=== PATIENT | male | born 1945 | race Two or more races ===

== ENCOUNTER 2024-01-05 13:36 | Inpatient (IN) | payer MEDICAID ==
[~2024-01-05] VITALS: Ht 160 cm; Wt 53.0 kg
[2024-01-05 14:09] LABS: BASOPHILS % (AUTO) 0.3 % (0-1); EOSINOPHILS % (AUTO) 0 % (0-6); HEMATOCRIT 47.3 % (42.0-52.0); LYMPHOCYTES # (AUTO) 1.1 X10'3 (1.1-4.8); LYMPHOCYTES % (AUTO) 10.4 % (21-51); MEAN CORPUSCULAR HEMOGLOBIN 29.9 PG (27.0-31.0); MEAN CORPUSCULAR HGB CONC 33.9 g/dL (33.0-36.5); MEAN CORPUSCULAR VOLUME 88.4 FL (78-98); MEAN PLATELET VOLUME 8.2 FL (7.4-10.4); MONOCYTES # (AUTO) 0.7 X10'3 (0-0.9); MONOCYTES % (AUTO) 6.6 % (2-12); NEUTROPHILS # (AUTO) 8.9 X10'3 (1.8-7.7); NEUTROPHILS % (AUTO) 82.7 % (42-75); PLATELET COUNT 196 X10'3 (140-440); RED BLOOD COUNT 5.35 X10'6 (4.70-6.10); RED CELL DISTRIBUTION WIDTH 14.7 % (11.5-14.5); WHITE BLOOD COUNT 10.8 X10'3 (4.5-11.0)
[2024-01-05 14:24] LABS: ALANINE AMINOTRANSFERASE 9 U/L (12-78); ALBUMIN 3.5 G/DL (3.4-5.0); ALBUMIN/GLOBULIN RATIO 0.7 (1.1-1.5); ALKALINE PHOSPHATASE 87 IU/L (46-116); ANION GAP 10 (8-16); ASPARTATE AMINO TRANSFERASE 15 U/L (10-37); BILIRUBIN,TOTAL 1.4 MG/DL (0.1-1.0); BLOOD UREA NITROGEN 24 MG/DL (7-18); BUN/CREATININE RATIO 22.6 (10.0-20.0); CALCIUM 9.4 MG/DL (8.5-10.1); CHLORIDE 101 MMOL/L (99-107); CREATININE 1.06 MG/DL (0.60-1.10); GLUCOSE 154 MG/DL (70-104); LIPASE 23 U/L (16-77); POTASSIUM 3.8 MMOL/L (3.5-5.1); SODIUM 139 MMOL/L (135-145); TOTAL CARBON DIOXIDE 28.1 MMOL/L (24-32); TOTAL PROTEIN 8.3 G/DL (6.4-8.2); eCRCL 45 ML/MIN; eGFR 67 ML/MIN
[2024-01-05 16:06] LABS: BILIRUBIN,URINE SMALL (Neg); CLARITY,URINE CLOUDY (Clear); COLOR,URINE YELLOW (Yellow); GLUCOSE, URINE NEGATIVE (Neg); KETONES,URINE TRACE mg/dl (Neg); LEUKOCYTE ESTERASE ,URINE SMALL (Neg); NITRITES, URINE NEGATIVE (Neg); OCCULT BLOOD,URINE SMALL (Neg); PROTEIN,URINE 30 mg/dl (Neg); UROBILINOGEN,URINE 0.2 E.U/dL (0.2-1.0)
[2024-01-05 16:10] LABS: UA COLLECTION TYPE VOIDED
[2024-01-05 16:11] LABS: HYALINE CASTS 0-3 /LPF (NEGATIVE); SQUAMOUS EPITHELIAL CELL,UR FEW /LPF (FEW)
[2024-01-05 16:12] LABS: BACTERIA,URINE 3+ /HPF (Neg); WBC,URINE TNTC /HPF (0-4)
[2024-01-05 16:13] LABS: CAL OXALATE CRYSTALS 1+ /HPF (NEGATIVE); RBC,URINE 0-2 /HPF (0-2); TRANSITIONAL EPI CELLS,URINE FEW /HPF
[2024-01-05] MEDS ORDERED: magnesium sulf-water 4G/100mL 100 ML IV PRN (17:10)
[2024-01-05] MEDS ORDERED: HYDROcodone/acetaminophen 5mg/325mg tablet PO PRN (17:10)
[2024-01-05] MEDS ORDERED: magnesium Cl slow-release 64mg tablet PO PRN (17:10)
[2024-01-05] MEDS ORDERED: potassium Cl 20 mEq SR tablet PO PRN ×2 (17:10)
[2024-01-05 17:48] LABS: HEMOGLOBIN A1C 5.1 % (4.5-6.2)
[2024-01-05] MEDS ORDERED: diatr meglu/diatrizoate 30ml oral sol.-(3 dose) bottle PO SCH (17:55)
[2024-01-05 18:31] LABS: APTT 26 SECONDS (22-32); INR 1.1 INR; PROTHROMBIN TIME 11.1 SECONDS (9.0-12.0)
[2024-01-05] MEDS: dextrose 5%-1/2 normal saline 1,000 ML IV SCH (18:56)
[2024-01-05] MEDS: CefTRIAXone/D5W-Rocephin 1gm 50 ML IV SCH (18:57)
[2024-01-05] MEDS: pantoprazole 40 MG vial IV SCH (18:57)
[2024-01-05] MEDS: K and/or MAG REPLACEMENT MC SCH (20:00)
[2024-01-05] MEDS: diatr meglu/diatrizoate 30ml oral sol.-(3 dose) bottle PO SCH (20:11)
[2024-01-05] MEDS: normal saline 1000ml 1,000 ML IV SCH (22:50)
[2024-01-05] MEDS: normal saline 1000ml 1,000 ML IV ONE (23:32)
[2024-01-06 07:59] LABS: BASOPHILS % (AUTO) 0.2 % (0-1); EOSINOPHILS % (AUTO) 0 % (0-6); HEMATOCRIT 43.4 % (42.0-52.0); HEMOGLOBIN 14.8 g/dl (14.0-17.9); LYMPHOCYTES # (AUTO) 0.8 X10'3 (1.1-4.8); LYMPHOCYTES % (AUTO) 9.2 % (21-51); MEAN CORPUSCULAR HEMOGLOBIN 30.3 PG (27.0-31.0); MEAN CORPUSCULAR HGB CONC 34.1 g/dL (33.0-36.5); MEAN CORPUSCULAR VOLUME 88.7 FL (78-98); MEAN PLATELET VOLUME 8.5 FL (7.4-10.4); MONOCYTES # (AUTO) 0.8 X10'3 (0-0.9); MONOCYTES % (AUTO) 9.1 % (2-12); NEUTROPHILS # (AUTO) 7.1 X10'3 (1.8-7.7); NEUTROPHILS % (AUTO) 81.5 % (42-75); PLATELET COUNT 163 X10'3 (140-440); RED BLOOD COUNT 4.89 X10'6 (4.70-6.10); RED CELL DISTRIBUTION WIDTH 14.4 % (11.5-14.5); WHITE BLOOD COUNT 8.7 X10'3 (4.5-11.0)
[2024-01-06 08:19] LABS: ALANINE AMINOTRANSFERASE 9 U/L (12-78); ALBUMIN 2.8 G/DL (3.4-5.0); ALBUMIN/GLOBULIN RATIO 0.7 (1.1-1.5); ALKALINE PHOSPHATASE 63 IU/L (46-116); ANION GAP 8 (8-16); ASPARTATE AMINO TRANSFERASE 15 U/L (10-37); BLOOD UREA NITROGEN 25 MG/DL (7-18); BUN/CREATININE RATIO 28.7 (10.0-20.0); CALCIUM 8.2 MG/DL (8.5-10.1); CHLORIDE 106 MMOL/L (99-107); CREATININE 0.87 MG/DL (0.60-1.10); GLUCOSE 128 MG/DL (70-104); POTASSIUM 3.4 MMOL/L (3.5-5.1); SODIUM 142 MMOL/L (135-145); TOTAL CARBON DIOXIDE 27.9 MMOL/L (24-32); TOTAL PROTEIN 6.7 G/DL (6.4-8.2); eCRCL 55 ML/MIN; eGFR 84 ML/MIN
[2024-01-06] MEDS: ciprofloxacin lact 400MG/200ML 200 ML IV SCH ×2 (13:12→19:13)
[2024-01-06] MEDS: metroNIDAZOLE-Flagyl 500mg/NS 100 ML IV SCH (14:57)
[2024-01-06] MEDS ORDERED: CefTRIAXone/D5W-Rocephin 1gm 50 ML IV SCH (17:05)
[2024-01-06 17:57] VITALS: RESP 16; O2SAT 96
[2024-01-06 18:00] VITALS: BP 167/103; PULSE 99; RESP 16; TEMP 98.3; O2SAT 96
[2024-01-06 18:02] VITALS: BP 138/76; PULSE 101; RESP 16; TEMP 98; O2SAT 96
[2024-01-06] MEDS: lisinopril 10 MG tablet PO SCH (19:13)
[2024-01-06 20:00] VITALS: RESP 16; O2SAT 96
[2024-01-06] MEDS: diatr meglu/diatrizoate 30ml oral sol.-(3 dose) bottle PO SCH (20:50)
[2024-01-06 22:00] VITALS: BP 148/98; PULSE 104; RESP 16; TEMP 97.1; O2SAT 96
[2024-01-06] MEDS: potassium Cl 40MEQ/1/2NS 520ml 520 ML IV PRN (23:54)
[2024-01-07] VITALS (19 sets, daily range): BP systolic 128–198; BP diastolic 64–110; PULSE 16–84; RESP 10–18; TEMP 97.6–98.9; O2SAT 93–100
[2024-01-07] MEDS ORDERED: CARV-50 PO (03:02)
[2024-01-07] MEDS ORDERED: LOSA-415 PO (03:02)
[2024-01-07] MEDS ORDERED: CARV3.122 PO (03:09)
[2024-01-07] MEDS: CIPROFLOXACIN 200mg/D5W 100 ML premix IV SCH ×2 (06:32→07:13)
[2024-01-07 06:52] LABS: BASOPHILS % (AUTO) 0.4 % (0-1); EOSINOPHILS % (AUTO) 0.2 % (0-6); HEMATOCRIT 41.8 % (42.0-52.0); HEMOGLOBIN 14.2 g/dl (14.0-17.9); LYMPHOCYTES # (AUTO) 1.1 X10'3 (1.1-4.8); LYMPHOCYTES % (AUTO) 22.8 % (21-51); MEAN CORPUSCULAR HEMOGLOBIN 29.9 PG (27.0-31.0); MEAN CORPUSCULAR VOLUME 88.1 FL (78-98); MEAN PLATELET VOLUME 8.6 FL (7.4-10.4); MONOCYTES # (AUTO) 0.7 X10'3 (0-0.9); MONOCYTES % (AUTO) 13.6 % (2-12); PLATELET COUNT 147 X10'3 (140-440); RED BLOOD COUNT 4.74 X10'6 (4.70-6.10); RED CELL DISTRIBUTION WIDTH 14.6 % (11.5-14.5); WHITE BLOOD COUNT 4.8 X10'3 (4.5-11.0)
[2024-01-07 07:19] LABS: ALANINE AMINOTRANSFERASE 14 U/L (12-78); ALBUMIN 2.6 G/DL (3.4-5.0); ALBUMIN/GLOBULIN RATIO 0.7 (1.1-1.5); ALKALINE PHOSPHATASE 52 IU/L (46-116); ANION GAP 4 (8-16); ASPARTATE AMINO TRANSFERASE 13 U/L (10-37); BILIRUBIN,TOTAL 0.8 MG/DL (0.1-1.0); BLOOD UREA NITROGEN 18 MG/DL (7-18); BUN/CREATININE RATIO 19.6 (10.0-20.0); CALCIUM 7.7 MG/DL (8.5-10.1); CHLORIDE 107 MMOL/L (99-107); CREATININE 0.92 MG/DL (0.60-1.10); GLUCOSE 134 MG/DL (70-104); MAGNESIUM 1.8 MG/DL (1.5-2.4); POTASSIUM 3.8 MMOL/L (3.5-5.1); SODIUM 138 MMOL/L (135-145); TOTAL PROTEIN 6.1 G/DL (6.4-8.2); eCRCL 52 ML/MIN; eGFR 79 ML/MIN
[2024-01-07] MEDS: losartan 25mg tablet PO SCH (08:03)
[2024-01-07] MEDS: carVEDilol 3.125mg tablet PO SCH (08:11)
[2024-01-07] MEDS: CefTRIAXone/D5W-Rocephin 1gm 50 ML IV SCH (16:45)
[2024-01-07] MEDS ORDERED: midazolam 1 mg/ML 2ml injection ONE (18:47)
[2024-01-07] MEDS: BUPIVAcaine 2.5mg/ml inj 50ml vial (contains preservative) ONE (18:48)
[2024-01-07] MEDS ORDERED: fentaNYL /PF 50mcg/ml 5ml ampule ONE (18:49)
[2024-01-07] MEDS: propofol 1000mg/100ml bottle 0 ML IV ONE (18:51)
[2024-01-07] MEDS ORDERED: sevoflurane 250ml liquid IH ONE (18:52)
[2024-01-07] MEDS ORDERED: meperidine/PF 25mg/ml syringe IV PRN ×2 (18:55)
[2024-01-07] MEDS ORDERED: proCHLORperazine 10 MG/2 ml inj IV PRN (18:55)
[2024-01-07] MEDS ORDERED: morphine 4 MG/ML inj SYRINge IV PRN (18:55)
[2024-01-07] MEDS ORDERED: hydrALAZINE 20mg/ml inj. IV PRN (18:55)
[2024-01-07] MEDS ORDERED: labetalol 20mg/4ml (5mg/ml) syringe IV PRN (18:55)
[2024-01-07] MEDS ORDERED: ondansetron/PF 4mg/2ml inj IV PRN (18:55)
[2024-01-07] MEDS ORDERED: ondansetron/PF 4mg/2ml inj ONE (19:56)
[2024-01-07] MEDS ORDERED: ePHEDrine 50MG/ML INJ. ONE (19:56)
[2024-01-07] MEDS ORDERED: LIDOcaine 2% (20mg/ml) 5ml vial ONE (19:56)
[2024-01-07] MEDS ORDERED: propofol inj 20 ML IV ONE (19:56)
[2024-01-07] MEDS ORDERED: dexamethasone sod phosphate 4mg/ml inj. ONE (19:56)
[2024-01-07] MEDS ORDERED: rocuronium 10mg/ml inj IV ONE ×2 (19:56→20:23)
[2024-01-07] MEDS ORDERED: 0.9 % SODIUM CHLORIDE 10 ML VIAL ONE (19:56)
[2024-01-07] MEDS ORDERED: LIDOcaine 1% (10mg/ml) 2ml vial ONE (19:57)
[2024-01-07] MEDS ORDERED: ceFOXitin 1000 MG inj ONE ×2 (20:00)
[2024-01-07] MEDS: BUPIVAcaine/PF 2.5mg/ml (0.25%) 10ml vial ONE (20:26)
[2024-01-07] MEDS: BUPIVACAINE liposomal/PF 13.3 MG/ML vial IM ONE (20:26)
[2024-01-07] MEDS ORDERED: albumin (Human) 5% 250ml 250 ML IV ONE ×2 (20:42)
[2024-01-07] MEDS ORDERED: naloxone 0.4 mg/ml inj IV PRN (21:00)
[2024-01-07] MEDS ORDERED: neostigmine methylsulfate 1 MG/ML 10ml vial ONE (21:03)
[2024-01-07] MEDS ORDERED: glycopyrrolate 0.2mg/ml inj ONE (21:03)
[2024-01-07] MEDS ORDERED: sugammadex 200mg/2ml injection IV ONE (21:26)
[2024-01-07 21:42] LABS: ABG BASE EXCESS -3.7 mmol/L (-2.0-3.0); ABG HCO3 19.9 mmol/L (21.0-28.0); ABG OXYGEN SATURATION 97.4 % (94.0-98.0); ABG PCO2 (T) 30.8 mmHg (35.0-48.0); ABG PH (T) 7.425 (7.350-7.450); ABG PO2 (T) 94.7 mmHg (83.0-108.0); FCOHb 0.4 % (0.5-1.5); FHHb 2.6 % (0.0-5.0); FLOW 10 L/min; FMetHb 0.3 % (0.0-1.5); FO2Hb 96.7 % (94.0-98.0); MODE simple mask; PATIENT TEMPERATURE 36.4; TOTAL HEMOGLOBIN 13.4 G/dl (13.5-17.5)
[2024-01-07] MEDS: meperidine/PF 25mg/ml syringe IV PRN (21:57)
[2024-01-07] MEDS: ringers solution, lacted 1,000 ML IV SCH (21:58)
[2024-01-07] MEDS: acetaminophen 1,000mg/100ml IV 100 ML IV ONE (21:58)
[2024-01-07 22:47] LABS: ALANINE AMINOTRANSFERASE 6 U/L (12-78); ALBUMIN 2.8 G/DL (3.4-5.0); ALBUMIN/GLOBULIN RATIO 1.2 (1.1-1.5); ALKALINE PHOSPHATASE 35 IU/L (46-116); ANION GAP 7 (8-16); ASPARTATE AMINO TRANSFERASE 9 U/L (10-37); BILIRUBIN,TOTAL 0.9 MG/DL (0.1-1.0); BLOOD UREA NITROGEN 16 MG/DL (7-18); BUN/CREATININE RATIO 15.4 (10.0-20.0); CALCIUM 7.1 MG/DL (8.5-10.1); CHLORIDE 107 MMOL/L (99-107); CREATININE 1.04 MG/DL (0.60-1.10); GLUCOSE 126 MG/DL (70-104); POTASSIUM 3.2 MMOL/L (3.5-5.1); SODIUM 136 MMOL/L (135-145); TOTAL CARBON DIOXIDE 22.4 MMOL/L (24-32); TOTAL PROTEIN 5.1 G/DL (6.4-8.2); eCRCL 46 ML/MIN; eGFR 69 ML/MIN
[2024-01-07 22:51] LABS: BASOPHILS % (AUTO) 0.3 % (0-1); EOSINOPHILS % (AUTO) 0.4 % (0-6); HEMATOCRIT 37.5 % (42.0-52.0); HEMOGLOBIN 12.9 g/dl (14.0-17.9); LYMPHOCYTES # (AUTO) 0.8 X10'3 (1.1-4.8); LYMPHOCYTES % (AUTO) 16.3 % (21-51); MEAN CORPUSCULAR HEMOGLOBIN 30.3 PG (27.0-31.0); MEAN CORPUSCULAR HGB CONC 34.5 g/dL (33.0-36.5); MEAN CORPUSCULAR VOLUME 87.9 FL (78-98); MEAN PLATELET VOLUME 8.5 FL (7.4-10.4); MONOCYTES # (AUTO) 0.2 X10'3 (0-0.9); MONOCYTES % (AUTO) 4.2 % (2-12); NEUTROPHILS # (AUTO) 3.8 X10'3 (1.8-7.7); NEUTROPHILS % (AUTO) 78.8 % (42-75); RED BLOOD COUNT 4.27 X10'6 (4.70-6.10); RED CELL DISTRIBUTION WIDTH 14.7 % (11.5-14.5); WHITE BLOOD COUNT 4.8 X10'3 (4.5-11.0)
[2024-01-07 23:09] LABS: PLATELET COUNT 131 X10'3 (140-440)
[2024-01-08] VITALS (24 sets, daily range): BP systolic 118–159; BP diastolic 56–92; PULSE 62–94; RESP 12–22; TEMP 98.2; O2SAT 90–95
[2024-01-08] MEDS: ceFOXitin 1 GM/NS 100mL IVPB 100 ML IV SCH (00:42)
[2024-01-08] MEDS: morphine 2 MG/ML inj. syringe IV PRN (02:44)
[2024-01-08 02:54] LABS: BASOPHILS % (AUTO) 0.2 % (0-1); EOSINOPHILS % (AUTO) 0 % (0-6); HEMATOCRIT 39.3 % (42.0-52.0); HEMOGLOBIN 13.4 g/dl (14.0-17.9); LYMPHOCYTES # (AUTO) 0.5 X10'3 (1.1-4.8); LYMPHOCYTES % (AUTO) 8.3 % (21-51); MEAN CORPUSCULAR HEMOGLOBIN 30.1 PG (27.0-31.0); MEAN CORPUSCULAR VOLUME 88.4 FL (78-98); MEAN PLATELET VOLUME 8.5 FL (7.4-10.4); MONOCYTES # (AUTO) 0.6 X10'3 (0-0.9); MONOCYTES % (AUTO) 10.1 % (2-12); NEUTROPHILS # (AUTO) 4.8 X10'3 (1.8-7.7); NEUTROPHILS % (AUTO) 81.4 % (42-75); PLATELET COUNT 124 X10'3 (140-440); RED BLOOD COUNT 4.44 X10'6 (4.70-6.10); RED CELL DISTRIBUTION WIDTH 14.5 % (11.5-14.5); WHITE BLOOD COUNT 5.9 X10'3 (4.5-11.0)
[2024-01-08 03:27] LABS: ALANINE AMINOTRANSFERASE 8 U/L (12-78); ALBUMIN 2.7 G/DL (3.4-5.0); ALKALINE PHOSPHATASE 35 IU/L (46-116); ANION GAP 7 (8-16); ASPARTATE AMINO TRANSFERASE 12 U/L (10-37); BILIRUBIN,TOTAL 1.3 MG/DL (0.1-1.0); BLOOD UREA NITROGEN 14 MG/DL (7-18); BUN/CREATININE RATIO 14.1 (10.0-20.0); CHLORIDE 105 MMOL/L (99-107); CREATININE 0.99 MG/DL (0.60-1.10); GLUCOSE 152 MG/DL (70-104); MAGNESIUM 1.5 MG/DL (1.5-2.4); POTASSIUM 3.1 MMOL/L (3.5-5.1); SODIUM 135 MMOL/L (135-145); TOTAL CARBON DIOXIDE 23.2 MMOL/L (24-32); TOTAL PROTEIN 5.3 G/DL (6.4-8.2); eCRCL 48 ML/MIN; eGFR 73 ML/MIN
[2024-01-08] MEDS: magnesium sulf-water 2g/50mL 50 ML IV PRN (05:34)
[2024-01-08] MEDS: potassium Cl 40MEQ/270ML bag 270 ML IV PRN (09:00)
[2024-01-09] VITALS (9 sets, daily range): BP systolic 88–182; BP diastolic 58–107; PULSE 97–127; RESP 12–26; TEMP 97.8–99; O2SAT 91–97
[2024-01-09] MEDS: morphine 2 MG/ML inj. syringe IV PRN (00:36)
[2024-01-09] MEDS: hydrALAZINE 20mg/ml inj. IV PRN (15:56)
[2024-01-10] VITALS (7 sets, daily range): BP systolic 128–163; BP diastolic 62–91; PULSE 42–111; RESP 12–22; TEMP 97.2–98.6; O2SAT 90–100
[2024-01-10 06:12] LABS: BASOPHILS % (AUTO) 0.1 % (0-1); EOSINOPHILS % (AUTO) 0.1 % (0-6); HEMATOCRIT 39.5 % (42.0-52.0); HEMOGLOBIN 13.6 g/dl (14.0-17.9); LYMPHOCYTES # (AUTO) 0.9 X10'3 (1.1-4.8); LYMPHOCYTES % (AUTO) 10.1 % (21-51); MEAN CORPUSCULAR HEMOGLOBIN 30.1 PG (27.0-31.0); MEAN CORPUSCULAR HGB CONC 34.5 g/dL (33.0-36.5); MEAN CORPUSCULAR VOLUME 87.2 FL (78-98); MEAN PLATELET VOLUME 8.5 FL (7.4-10.4); MONOCYTES # (AUTO) 0.9 X10'3 (0-0.9); MONOCYTES % (AUTO) 10.7 % (2-12); NEUTROPHILS # (AUTO) 6.7 X10'3 (1.8-7.7); PLATELET COUNT 126 X10'3 (140-440); RED BLOOD COUNT 4.53 X10'6 (4.70-6.10); RED CELL DISTRIBUTION WIDTH 14.6 % (11.5-14.5); WHITE BLOOD COUNT 8.5 X10'3 (4.5-11.0)
[2024-01-10 06:20] LABS: ALANINE AMINOTRANSFERASE 11 U/L (12-78); ALBUMIN 2.1 G/DL (3.4-5.0); ALBUMIN/GLOBULIN RATIO 0.6 (1.1-1.5); ALKALINE PHOSPHATASE 37 IU/L (46-116); ANION GAP 8 (8-16); ASPARTATE AMINO TRANSFERASE 15 U/L (10-37); BILIRUBIN,TOTAL 0.7 MG/DL (0.1-1.0); BLOOD UREA NITROGEN 9 MG/DL (7-18); BUN/CREATININE RATIO 7.5 (10.0-20.0); CALCIUM 7.8 MG/DL (8.5-10.1); CHLORIDE 105 MMOL/L (99-107); GLUCOSE 135 MG/DL (70-104); SODIUM 136 MMOL/L (135-145); TOTAL PROTEIN 5.4 G/DL (6.4-8.2); eCRCL 39 ML/MIN; eGFR 58 ML/MIN
[2024-01-10] MEDS ORDERED: magnesium sulf-water 4G/100mL 100 ML IV PRN (06:55)
[2024-01-10] MEDS ORDERED: potassium Cl 20 mEq SR tablet PO PRN (06:55)
[2024-01-10] MEDS ORDERED: magnesium Cl slow-release 64mg tablet PO PRN (06:55)
[2024-01-10] MEDS ORDERED: magnesium sulf-water 2g/50mL 50 ML IV PRN (06:55)
[2024-01-10] MEDS ORDERED: potassium Cl 40MEQ/1/2NS 520ml 520 ML IV PRN (06:55)
[2024-01-10] MEDS: potassium Cl 20 mEq SR tablet PO PRN (20:41)
[2024-01-11] VITALS (8 sets, daily range): BP systolic 98–157; BP diastolic 62–94; PULSE 62–113; RESP 18–28; TEMP 97.2–98.2; O2SAT 93–98
[2024-01-11] MEDS: temazepam 15mg capsule PO ONE (00:28)
[2024-01-11] MEDS ORDERED: HYDROcodone/acetaminophen 5mg/325mg tablet 1/2 TAB PO ONE ×2 (00:45→03:15)
[2024-01-11] MEDS: HYDROcodone/acetaminophen 5mg/325mg tablet PO ONE (03:43)
[2024-01-11] MEDS: ondansetron/PF 4mg/2ml inj IV PRN (08:19)
[2024-01-11 09:14] LABS: BASOPHILS % (AUTO) 0.1 % (0-1); EOSINOPHILS % (AUTO) 0.1 % (0-6); HEMATOCRIT 41.8 % (42.0-52.0); HEMOGLOBIN 13.8 g/dl (14.0-17.9); LYMPHOCYTES # (AUTO) 0.8 X10'3 (1.1-4.8); LYMPHOCYTES % (AUTO) 6.1 % (21-51); MEAN CORPUSCULAR HEMOGLOBIN 29.8 PG (27.0-31.0); MEAN CORPUSCULAR HGB CONC 33.1 g/dL (33.0-36.5); MEAN PLATELET VOLUME 8.2 FL (7.4-10.4); MONOCYTES % (AUTO) 8.1 % (2-12); NEUTROPHILS # (AUTO) 10.6 X10'3 (1.8-7.7); NEUTROPHILS % (AUTO) 85.6 % (42-75); PLATELET COUNT 150 X10'3 (140-440); RED BLOOD COUNT 4.64 X10'6 (4.70-6.10); RED CELL DISTRIBUTION WIDTH 14.9 % (11.5-14.5); WHITE BLOOD COUNT 12.4 X10'3 (4.5-11.0)
[2024-01-11 11:08] LABS: ALANINE AMINOTRANSFERASE 13 U/L (12-78); ALBUMIN 2.2 G/DL (3.4-5.0); ALBUMIN/GLOBULIN RATIO 0.6 (1.1-1.5); ALKALINE PHOSPHATASE 56 IU/L (46-116); ANION GAP 11 (8-16); ASPARTATE AMINO TRANSFERASE 12 U/L (10-37); BLOOD UREA NITROGEN 22 MG/DL (7-18); BUN/CREATININE RATIO 10.9 (10.0-20.0); CALCIUM 8.2 MG/DL (8.5-10.1); CHLORIDE 106 MMOL/L (99-107); CREATININE 2.02 MG/DL (0.60-1.10); GLUCOSE 118 MG/DL (70-104); POTASSIUM 4.8 MMOL/L (3.5-5.1); SODIUM 137 MMOL/L (135-145); TOTAL CARBON DIOXIDE 20.3 MMOL/L (24-32); TOTAL PROTEIN 5.8 G/DL (6.4-8.2); eCRCL 23 ML/MIN; eGFR 32 ML/MIN
[2024-01-11] MEDS: tamsulosin 0.4mg capsule PO SCH (22:38)
[2024-01-12] VITALS (8 sets, daily range): BP systolic 113–137; BP diastolic 75–90; PULSE 98–106; RESP 16–28; TEMP 97–98.6; O2SAT 92–98
[2024-01-12 06:39] LABS: ALANINE AMINOTRANSFERASE 13 U/L (12-78); ALBUMIN 2.2 G/DL (3.4-5.0); ALBUMIN/GLOBULIN RATIO 0.6 (1.1-1.5); ALKALINE PHOSPHATASE 59 IU/L (46-116); ANION GAP 11 (8-16); ASPARTATE AMINO TRANSFERASE 13 U/L (10-37); BLOOD UREA NITROGEN 40 MG/DL (7-18); BUN/CREATININE RATIO 14.2 (10.0-20.0); CALCIUM 8.5 MG/DL (8.5-10.1); CHLORIDE 105 MMOL/L (99-107); CREATININE 2.81 MG/DL (0.60-1.10); GLUCOSE 100 MG/DL (70-104); POTASSIUM 5.1 MMOL/L (3.5-5.1); SODIUM 137 MMOL/L (135-145); TOTAL PROTEIN 5.9 G/DL (6.4-8.2); eCRCL 17 ML/MIN; eGFR 22 ML/MIN
[2024-01-12 06:47] LABS: BASOPHILS % (AUTO) 0.1 % (0-1); EOSINOPHILS # (AUTO) 0.1 X10'3 (0-0.9); EOSINOPHILS % (AUTO) 0.6 % (0-6); HEMATOCRIT 41.7 % (42.0-52.0); LYMPHOCYTES # (AUTO) 1.3 X10'3 (1.1-4.8); LYMPHOCYTES % (AUTO) 13.3 % (21-51); MEAN CORPUSCULAR HGB CONC 33.6 g/dL (33.0-36.5); MEAN CORPUSCULAR VOLUME 89.5 FL (78-98); MEAN PLATELET VOLUME 7.4 FL (7.4-10.4); MONOCYTES # (AUTO) 1.1 X10'3 (0-0.9); MONOCYTES % (AUTO) 11.5 % (2-12); NEUTROPHILS # (AUTO) 7.1 X10'3 (1.8-7.7); NEUTROPHILS % (AUTO) 74.5 % (42-75); PLATELET COUNT 184 X10'3 (140-440); RED BLOOD COUNT 4.67 X10'6 (4.70-6.10); RED CELL DISTRIBUTION WIDTH 14.7 % (11.5-14.5); WHITE BLOOD COUNT 9.6 X10'3 (4.5-11.0)
[2024-01-12] MEDS: normal saline 1000ml 1,000 ML IV SCH (14:29)
[2024-01-13 02:00] VITALS: BP 141/84; PULSE 94; RESP 18; TEMP 97.6; O2SAT 94
[2024-01-13 06:00] VITALS: BP 177/92; PULSE 93; RESP 24; TEMP 97.9; O2SAT 92
[2024-01-13 07:57] LABS: BASOPHILS % (AUTO) 0.4 % (0-1); EOSINOPHILS # (AUTO) 0.1 X10'3 (0-0.9); EOSINOPHILS % (AUTO) 0.7 % (0-6); HEMATOCRIT 43.2 % (42.0-52.0); HEMOGLOBIN 14.5 g/dl (14.0-17.9); LYMPHOCYTES # (AUTO) 1.4 X10'3 (1.1-4.8); MEAN CORPUSCULAR HEMOGLOBIN 30.6 PG (27.0-31.0); MEAN CORPUSCULAR HGB CONC 33.4 g/dL (33.0-36.5); MEAN CORPUSCULAR VOLUME 91.6 FL (78-98); MEAN PLATELET VOLUME 7.8 FL (7.4-10.4); MONOCYTES # (AUTO) 1.1 X10'3 (0-0.9); MONOCYTES % (AUTO) 10.3 % (2-12); NEUTROPHILS % (AUTO) 75.6 % (42-75); PLATELET COUNT 154 X10'3 (140-440); RED BLOOD COUNT 4.72 X10'6 (4.70-6.10); RED CELL DISTRIBUTION WIDTH 15.2 % (11.5-14.5); WHITE BLOOD COUNT 10.5 X10'3 (4.5-11.0)
[2024-01-13 08:21] LABS: ALANINE AMINOTRANSFERASE 19 U/L (12-78); ALBUMIN 2.2 G/DL (3.4-5.0); ALBUMIN/GLOBULIN RATIO 0.6 (1.1-1.5); ALKALINE PHOSPHATASE 61 IU/L (46-116); ANION GAP 14 (8-16); ASPARTATE AMINO TRANSFERASE 23 U/L (10-37); BILIRUBIN,TOTAL 0.9 MG/DL (0.1-1.0); BLOOD UREA NITROGEN 56 MG/DL (7-18); BUN/CREATININE RATIO 16.9 (10.0-20.0); CALCIUM 8.2 MG/DL (8.5-10.1); CHLORIDE 107 MMOL/L (99-107); CREATININE 3.31 MG/DL (0.60-1.10); GLUCOSE 88 MG/DL (70-104); POTASSIUM 4.9 MMOL/L (3.5-5.1); SODIUM 138 MMOL/L (135-145); TOTAL CARBON DIOXIDE 17.3 MMOL/L (24-32); eCRCL 14 ML/MIN; eGFR 18 ML/MIN
[2024-01-13 15:00] VITALS: BP 150/91; PULSE 95; RESP 16; O2SAT 95
[2024-01-13 18:00] VITALS: BP 128/82; PULSE 86; RESP 20; TEMP 97.6; O2SAT 92
[2024-01-13 19:22] LABS: FREE T4 (FREE THYROXINE) 1.05 NG/DL (0.73-1.40); THYROID STIMULATING HORMONE 5.47 ulU/ml (0.34-4.50)
[2024-01-13 20:00] VITALS: RESP 22; O2SAT 95
[2024-01-13 22:00] VITALS: BP 137/92; PULSE 98; RESP 18; TEMP 98.6; O2SAT 96
[2024-01-13] MEDS: risperiDONE 0.25mg tablet PO ONE (22:12)
[2024-01-14] VITALS (7 sets, daily range): BP systolic 107–138; BP diastolic 53–83; PULSE 80–94; RESP 16–22; TEMP 96.7–97.8; O2SAT 94–98
[2024-01-14 00:43] LABS: BILIRUBIN,URINE NEGATIVE (Neg); CLARITY,URINE CLEAR (Clear); COLOR,URINE YELLOW (Yellow); GLUCOSE, URINE NEGATIVE (Neg); KETONES,URINE NEGATIVE (Neg); LEUKOCYTE ESTERASE ,URINE SMALL (Neg); NITRITES, URINE NEGATIVE (Neg); OCCULT BLOOD,URINE LARGE (Neg); PROTEIN,URINE NEGATIVE (Neg); UROBILINOGEN,URINE 0.2 E.U/dL (0.2-1.0)
[2024-01-14 00:45] LABS: TOTAL PROTEIN,URINE RANDOM 13.3 MG/DL
[2024-01-14 00:51] LABS: UA COLLECTION TYPE NON-SPECIFIED
[2024-01-14 01:01] LABS: AMORPHOUS URATES 1+; BACTERIA,URINE FEW /HPF (Neg); FINE GRANULAR CAST 0-3 /LPF (NEGATIVE); RBC,URINE 20-50 /HPF (0-2); SQUAMOUS EPITHELIAL CELL,UR FEW /LPF (FEW); WBC,URINE 0-4 /HPF (0-4)
[2024-01-14 05:59] LABS: ALANINE AMINOTRANSFERASE 20 U/L (12-78); ALBUMIN 1.9 G/DL (3.4-5.0); ALBUMIN/GLOBULIN RATIO 0.6 (1.1-1.5); ALKALINE PHOSPHATASE 49 IU/L (46-116); ANION GAP 8 (8-16); ASPARTATE AMINO TRANSFERASE 17 U/L (10-37); BILIRUBIN,TOTAL 0.6 MG/DL (0.1-1.0); BLOOD UREA NITROGEN 51 MG/DL (7-18); BUN/CREATININE RATIO 21.6 (10.0-20.0); CALCIUM 8.1 MG/DL (8.5-10.1); CHLORIDE 109 MMOL/L (99-107); CREATININE 2.36 MG/DL (0.60-1.10); GLUCOSE 109 MG/DL (70-104); POTASSIUM 4.5 MMOL/L (3.5-5.1); SODIUM 140 MMOL/L (135-145); TOTAL CARBON DIOXIDE 23.3 MMOL/L (24-32); TOTAL PROTEIN 5.2 G/DL (6.4-8.2); eCRCL 20 ML/MIN; eGFR 27 ML/MIN
[2024-01-14 06:23] LABS: BASOPHILS % (AUTO) 0.4 % (0-1); EOSINOPHILS # (AUTO) 0.1 X10'3 (0-0.9); EOSINOPHILS % (AUTO) 1.6 % (0-6); HEMATOCRIT 40.5 % (42.0-52.0); HEMOGLOBIN 13.5 g/dl (14.0-17.9); LYMPHOCYTES # (AUTO) 1.1 X10'3 (1.1-4.8); LYMPHOCYTES % (AUTO) 16.6 % (21-51); MEAN CORPUSCULAR HGB CONC 33.4 g/dL (33.0-36.5); MEAN PLATELET VOLUME 7.3 FL (7.4-10.4); MONOCYTES # (AUTO) 0.6 X10'3 (0-0.9); MONOCYTES % (AUTO) 9.8 % (2-12); NEUTROPHILS # (AUTO) 4.7 X10'3 (1.8-7.7); NEUTROPHILS % (AUTO) 71.6 % (42-75); PLATELET COUNT 181 X10'3 (140-440); RED CELL DISTRIBUTION WIDTH 15.1 % (11.5-14.5); WHITE BLOOD COUNT 6.5 X10'3 (4.5-11.0)
[2024-01-14] MEDS: acetaminophen 325mg tablet PO PRN (11:20)
[2024-01-14] MEDS: normal saline 1000ml 1,000 ML IV SCH (14:26)
[2024-01-14] MEDS: lactose-reduced food (Ensure Enlive) - 237ml bottle PO SCH (18:24)
[2024-01-14] MEDS: magnesium hydroxide 30ml (MOM) UD suspension PO SCH (20:00)
[2024-01-14] MEDS: risperiDONE 0.25mg tablet PO SCH (20:51)
[2024-01-14] MEDS: heparin, porcine 5000 units/ml vial SQ SCH (20:53)
[2024-01-14] MEDS ORDERED: risperiDONE 0.25mg tablet PO SCH (21:00)
[2024-01-15 02:00] VITALS: BP 135/71; PULSE 84; RESP 21; TEMP 97.2; O2SAT 94
[2024-01-15 05:59] LABS: BASOPHILS % (AUTO) 0.4 % (0-1); EOSINOPHILS # (AUTO) 0.1 X10'3 (0-0.9); EOSINOPHILS % (AUTO) 1.8 % (0-6); HEMATOCRIT 36.4 % (42.0-52.0); HEMOGLOBIN 12.3 g/dl (14.0-17.9); LYMPHOCYTES # (AUTO) 1.4 X10'3 (1.1-4.8); LYMPHOCYTES % (AUTO) 20.3 % (21-51); MEAN CORPUSCULAR HEMOGLOBIN 30.2 PG (27.0-31.0); MEAN CORPUSCULAR HGB CONC 33.7 g/dL (33.0-36.5); MEAN CORPUSCULAR VOLUME 89.7 FL (78-98); MEAN PLATELET VOLUME 7.2 FL (7.4-10.4); MONOCYTES # (AUTO) 0.6 X10'3 (0-0.9); MONOCYTES % (AUTO) 8.6 % (2-12); NEUTROPHILS # (AUTO) 4.7 X10'3 (1.8-7.7); NEUTROPHILS % (AUTO) 68.9 % (42-75); PLATELET COUNT 180 X10'3 (140-440); RED BLOOD COUNT 4.06 X10'6 (4.70-6.10); RED CELL DISTRIBUTION WIDTH 14.8 % (11.5-14.5); WHITE BLOOD COUNT 6.8 X10'3 (4.5-11.0)
[2024-01-15 06:00] VITALS: BP 142/79; PULSE 74; RESP 16; TEMP 97.3; O2SAT 96
[2024-01-15 06:26] LABS: ALANINE AMINOTRANSFERASE 20 U/L (12-78); ALBUMIN 1.8 G/DL (3.4-5.0); ALBUMIN/GLOBULIN RATIO 0.5 (1.1-1.5); ALKALINE PHOSPHATASE 51 IU/L (46-116); ANION GAP 6 (8-16); ASPARTATE AMINO TRANSFERASE 25 U/L (10-37); BILIRUBIN,TOTAL 0.5 MG/DL (0.1-1.0); BLOOD UREA NITROGEN 27 MG/DL (7-18); BUN/CREATININE RATIO 24.5 (10.0-20.0); CALCIUM 7.6 MG/DL (8.5-10.1); CHLORIDE 111 MMOL/L (99-107); GLUCOSE 99 MG/DL (70-104); POTASSIUM 3.9 MMOL/L (3.5-5.1); SODIUM 141 MMOL/L (135-145); TOTAL CARBON DIOXIDE 24.5 MMOL/L (24-32); TOTAL PROTEIN 5.1 G/DL (6.4-8.2); eCRCL 42 ML/MIN; eGFR 64 ML/MIN
[2024-01-15 08:00] VITALS: RESP 16; O2SAT 96
[2024-01-15] MEDS: pantoprazole 40mg Tablet.DR PO SCH (11:37)
[2024-01-15] MEDS: losartan 25mg tablet PO SCH (11:39)
[2024-01-15 21:00] VITALS: BP 117/74; PULSE 99; RESP 26; TEMP 97.5; O2SAT 95
[2024-01-16] VITALS (8 sets, daily range): BP systolic 97–131; BP diastolic 61–75; PULSE 55–105; RESP 16–24; TEMP 96.3–98.9; O2SAT 93–96
[2024-01-16 06:47] LABS: BASOPHILS % (AUTO) 0.3 % (0-1); EOSINOPHILS # (AUTO) 0.1 X10'3 (0-0.9); HEMATOCRIT 35.8 % (42.0-52.0); LYMPHOCYTES # (AUTO) 1.2 X10'3 (1.1-4.8); MEAN CORPUSCULAR HEMOGLOBIN 30.2 PG (27.0-31.0); MEAN CORPUSCULAR HGB CONC 33.4 g/dL (33.0-36.5); MEAN CORPUSCULAR VOLUME 90.3 FL (78-98); MEAN PLATELET VOLUME 7.2 FL (7.4-10.4); MONOCYTES # (AUTO) 0.6 X10'3 (0-0.9); MONOCYTES % (AUTO) 5.9 % (2-12); NEUTROPHILS % (AUTO) 81.8 % (42-75); PLATELET COUNT 216 X10'3 (140-440); RED BLOOD COUNT 3.96 X10'6 (4.70-6.10); RED CELL DISTRIBUTION WIDTH 14.6 % (11.5-14.5)
[2024-01-16 07:00] LABS: ALANINE AMINOTRANSFERASE 25 U/L (12-78); ALBUMIN 2.1 G/DL (3.4-5.0); ALBUMIN/GLOBULIN RATIO 0.6 (1.1-1.5); ALKALINE PHOSPHATASE 58 IU/L (46-116); ANION GAP 7 (8-16); ASPARTATE AMINO TRANSFERASE 23 U/L (10-37); BILIRUBIN,TOTAL 0.6 MG/DL (0.1-1.0); BLOOD UREA NITROGEN 16 MG/DL (7-18); CALCIUM 7.9 MG/DL (8.5-10.1); CHLORIDE 110 MMOL/L (99-107); CREATININE 0.84 MG/DL (0.60-1.10); GLUCOSE 98 MG/DL (70-104); POTASSIUM 3.6 MMOL/L (3.5-5.1); SODIUM 143 MMOL/L (135-145); TOTAL CARBON DIOXIDE 25.9 MMOL/L (24-32); TOTAL PROTEIN 5.4 G/DL (6.4-8.2); eCRCL 56 ML/MIN; eGFR 88 ML/MIN
[2024-01-16] MEDS: LidoCAINE 2% Topical Jelly 11mL syringe (UROJET) TOP ONE (11:50)
[2024-01-16 12:57] LABS: BILIRUBIN,URINE NEGATIVE (Neg); COLOR,URINE YELLOW (Yellow); GLUCOSE, URINE NEGATIVE (Neg); KETONES,URINE NEGATIVE (Neg); LEUKOCYTE ESTERASE ,URINE NEGATIVE (Neg); NITRITES, URINE NEGATIVE (Neg); OCCULT BLOOD,URINE LARGE (Neg); PH,URINE 5.5 (4.8-8.0); PROTEIN,URINE NEGATIVE (Neg); UROBILINOGEN,URINE 0.2 E.U/dL (0.2-1.0)
[2024-01-16 12:59] LABS: CLARITY,URINE SLIGHTLY CLOUDY (Clear); UA COLLECTION TYPE OTHER
[2024-01-16 13:03] LABS: SQUAMOUS EPITHELIAL CELL,UR NONE SEEN /LPF (FEW)
[2024-01-16 13:04] LABS: RBC,URINE 50-100 /HPF (0-2); WBC,URINE 0-4 /HPF (0-4)
[2024-01-16 13:06] LABS: BACTERIA,URINE FEW /HPF (Neg)
[2024-01-16] MEDS ORDERED: tamsulosin capsule PO (13:36)
[2024-01-17] VITALS (9 sets, daily range): BP systolic 104–129; BP diastolic 56–79; PULSE 82–95; RESP 15–20; TEMP 97.3–98.8; O2SAT 96–98
[2024-01-17 08:27] LABS: BASOPHILS % (AUTO) 0.2 % (0-1); EOSINOPHILS # (AUTO) 0.1 X10'3 (0-0.9); HEMATOCRIT 32.3 % (42.0-52.0); HEMOGLOBIN 10.8 g/dl (14.0-17.9); LYMPHOCYTES % (AUTO) 10.2 % (21-51); MEAN CORPUSCULAR HEMOGLOBIN 30.1 PG (27.0-31.0); MEAN CORPUSCULAR HGB CONC 33.4 g/dL (33.0-36.5); MEAN CORPUSCULAR VOLUME 90.2 FL (78-98); MONOCYTES # (AUTO) 0.7 X10'3 (0-0.9); MONOCYTES % (AUTO) 6.5 % (2-12); NEUTROPHILS # (AUTO) 8.4 X10'3 (1.8-7.7); NEUTROPHILS % (AUTO) 82.1 % (42-75); PLATELET COUNT 222 X10'3 (140-440); RED BLOOD COUNT 3.58 X10'6 (4.70-6.10); RED CELL DISTRIBUTION WIDTH 14.8 % (11.5-14.5); WHITE BLOOD COUNT 10.2 X10'3 (4.5-11.0)
[2024-01-17 08:44] LABS: ALANINE AMINOTRANSFERASE 33 U/L (12-78); ALBUMIN 1.9 G/DL (3.4-5.0); ALBUMIN/GLOBULIN RATIO 0.5 (1.1-1.5); ALKALINE PHOSPHATASE 66 IU/L (46-116); ANION GAP 8 (8-16); ASPARTATE AMINO TRANSFERASE 35 U/L (10-37); BILIRUBIN,TOTAL 0.4 MG/DL (0.1-1.0); BLOOD UREA NITROGEN 14 MG/DL (7-18); BUN/CREATININE RATIO 17.5 (10.0-20.0); CALCIUM 7.7 MG/DL (8.5-10.1); CHLORIDE 110 MMOL/L (99-107); GLUCOSE 100 MG/DL (70-104); POTASSIUM 3.7 MMOL/L (3.5-5.1); SODIUM 145 MMOL/L (135-145); TOTAL CARBON DIOXIDE 27.2 MMOL/L (24-32); TOTAL PROTEIN 5.4 G/DL (6.4-8.2); eCRCL 58 ML/MIN; eGFR > 90 ML/MIN
[2024-01-17] MEDS: acetaminophen 325mg tablet PO PRN (09:24)
[2024-01-17] MEDS: tamsulosin 0.4mg capsule PO SCH (19:08)
[2024-01-18] VITALS (8 sets, daily range): BP systolic 103–128; BP diastolic 57–76; PULSE 86–105; RESP 12–19; TEMP 97–98.6; O2SAT 92–98
[2024-01-18 07:56] LABS: BASOPHILS % (AUTO) 0.4 % (0-1); EOSINOPHILS # (AUTO) 0.1 X10'3 (0-0.9); EOSINOPHILS % (AUTO) 1.1 % (0-6); HEMATOCRIT 32.1 % (42.0-52.0); HEMOGLOBIN 10.6 g/dl (14.0-17.9); LYMPHOCYTES # (AUTO) 1.2 X10'3 (1.1-4.8); LYMPHOCYTES % (AUTO) 15.4 % (21-51); MEAN CORPUSCULAR HEMOGLOBIN 29.7 PG (27.0-31.0); MEAN CORPUSCULAR HGB CONC 32.9 g/dL (33.0-36.5); MEAN CORPUSCULAR VOLUME 90.3 FL (78-98); MEAN PLATELET VOLUME 7.3 FL (7.4-10.4); MONOCYTES # (AUTO) 0.7 X10'3 (0-0.9); MONOCYTES % (AUTO) 8.2 % (2-12); NEUTROPHILS # (AUTO) 6.1 X10'3 (1.8-7.7); NEUTROPHILS % (AUTO) 74.9 % (42-75); PLATELET COUNT 254 X10'3 (140-440); RED BLOOD COUNT 3.56 X10'6 (4.70-6.10); RED CELL DISTRIBUTION WIDTH 14.7 % (11.5-14.5); WHITE BLOOD COUNT 8.1 X10'3 (4.5-11.0)
[2024-01-18 08:03] LABS: ALBUMIN 1.9 G/DL (3.4-5.0); ANION GAP 7 (8-16); BLOOD UREA NITROGEN 16 MG/DL (7-18); BUN/CREATININE RATIO 21.6 (10.0-20.0); CHLORIDE 107 MMOL/L (99-107); CREATININE 0.74 MG/DL (0.60-1.10); GLUCOSE 97 MG/DL (70-104); POTASSIUM 3.7 MMOL/L (3.5-5.1); SODIUM 144 MMOL/L (135-145); TOTAL CARBON DIOXIDE 30.5 MMOL/L (24-32); eCRCL 56 ML/MIN; eGFR > 90 ML/MIN
[2024-01-19 02:00] VITALS: BP 90/53; PULSE 103; RESP 24; TEMP 98.3; O2SAT 92
[2024-01-19 06:49] VITALS: BP 107/57; PULSE 90; RESP 27; TEMP 97.9; O2SAT 92
[2024-01-19 08:00] VITALS: RESP 14; O2SAT 94
[2024-01-19 08:47] LABS: BASOPHILS % (AUTO) 0.4 % (0-1); EOSINOPHILS # (AUTO) 0.1 X10'3 (0-0.9); EOSINOPHILS % (AUTO) 1.1 % (0-6); HEMATOCRIT 30.9 % (42.0-52.0); HEMOGLOBIN 10.4 g/dl (14.0-17.9); LYMPHOCYTES # (AUTO) 1.6 X10'3 (1.1-4.8); LYMPHOCYTES % (AUTO) 22.9 % (21-51); MEAN CORPUSCULAR HEMOGLOBIN 30.3 PG (27.0-31.0); MEAN CORPUSCULAR HGB CONC 33.6 g/dL (33.0-36.5); MEAN CORPUSCULAR VOLUME 90.3 FL (78-98); MEAN PLATELET VOLUME 7.3 FL (7.4-10.4); MONOCYTES # (AUTO) 0.8 X10'3 (0-0.9); MONOCYTES % (AUTO) 11.1 % (2-12); NEUTROPHILS # (AUTO) 4.5 X10'3 (1.8-7.7); NEUTROPHILS % (AUTO) 64.5 % (42-75); PLATELET COUNT 278 X10'3 (140-440); RED BLOOD COUNT 3.42 X10'6 (4.70-6.10); RED CELL DISTRIBUTION WIDTH 15.1 % (11.5-14.5); WHITE BLOOD COUNT 6.9 X10'3 (4.5-11.0)
[2024-01-19 09:19] LABS: ALANINE AMINOTRANSFERASE 28 U/L (12-78); ALBUMIN 1.8 G/DL (3.4-5.0); ALBUMIN/GLOBULIN RATIO 0.5 (1.1-1.5); ALKALINE PHOSPHATASE 63 IU/L (46-116); ASPARTATE AMINO TRANSFERASE 27 U/L (10-37); BILIRUBIN,TOTAL 0.7 MG/DL (0.1-1.0); BLOOD UREA NITROGEN 15 MG/DL (7-18); BUN/CREATININE RATIO 20.3 (10.0-20.0); CALCIUM 7.5 MG/DL (8.5-10.1); CREATININE 0.74 MG/DL (0.60-1.10); GLUCOSE 110 MG/DL (70-104); TOTAL CARBON DIOXIDE 30.3 MMOL/L (24-32); TOTAL PROTEIN 5.8 G/DL (6.4-8.2); eCRCL 59 ML/MIN; eGFR > 90 ML/MIN
[2024-01-19 09:43] LABS: ANION GAP 7 (8-16); CHLORIDE 103 MMOL/L (99-107); POTASSIUM 3.7 MMOL/L (3.5-5.1); SODIUM 140 MMOL/L (135-145)
[2024-01-19 09:58] VITALS: BP 102/54; PULSE 100; RESP 22; TEMP 97.4; O2SAT 94
== END 2024-01-19 12:56 | DRG 224 ==
LOC: ER 13:37 → ED HOLD 17:14 → UNDOADMIN 17:14 → ED HOLD 01-06 09:53 → UNDOADMIN 01-06 09:53 → ORTHO 4S 01-06 14:35 → CICU 2S 01-07 21:24 → PCU 3S 01-08 17:52
PROVIDERS: ADMIT Internal Medicine; ATTEND Internal Medicine
PROC: BW211ZZ Computerized Tomography (CT Scan) of Abdomen and Pelvis using Low Osmolar Contrast (ICD-10-PCS; 2024-01-06)
PROC: 0D9600Z Drainage of Stomach with Drainage Device, Open Approach (ICD-10-PCS; 2024-01-07)
PROC: BW211ZZ Computerized Tomography (CT Scan) of Abdomen and Pelvis using Low Osmolar Contrast (ICD-10-PCS; 2024-01-07)
PROC: 0DNU0ZZ Release Omentum, Open Approach (ICD-10-PCS; principal; 2024-01-07 18:52)
DX: K56.51 Intestinal adhesions [bands], with partial obstruction (principal); G93.41 Metabolic encephalopathy; K55.9 Vascular disorder of intestine, unspecified; N17.9 Acute kidney failure, unspecified; E87.20 Acidosis, unspecified; F03.90 Unspecified dementia, unspecified severity, without behavioral disturbance, psychotic disturbance, mood disturbance, and anxiety; E86.0 Dehydration; E03.9 Hypothyroidism, unspecified; N39.0 Urinary tract infection, site not specified; F13.239 Sedative, hypnotic or anxiolytic dependence with withdrawal, unspecified; N28.9 Disorder of kidney and ureter, unspecified; N40.1 Benign prostatic hyperplasia with lower urinary tract symptoms; B96.20 Unspecified Escherichia coli [E. coli] as the cause of diseases classified elsewhere; N13.8 Other obstructive and reflux uropathy; M22.42 Chondromalacia patellae, left knee; I10 Essential (primary) hypertension
CPT/HCPCS: 36415; 36600; 71045; 73721; 74018; 74176; 76770; 80048; 80053; 81001; 82570; 82803; 82948; 83036; 83605; 83690; 83735; 83935; 84132; 84133; 84145; 84156; 84300; 84439; 84443; 85018; 85025; 85610; 85651; 85730; 87040; 87070; 87075; 87077; 87081; 87088; 87186; 93005; 97116; 97161; 97530; 99285; A4314; A4615; A4618; A6213; A6250; A6253; A6258; A6402; A6449; A6590; A7000; C1751; C1758; C9290; G0378; J0131; J0360; J0694; J0696; J0744; J1100; J1644; J2175; J2250; J2270; J2405; J2470; J2704; J2710; J3010; J3480; J3490; J7030; J7040; J7120; P9045; Q9963

== ENCOUNTER 2024-02-16 14:54 | Emergency (ER) | payer MEDICAID ==
[~2024-02-16] VITALS: Ht 154.9 cm; Wt 46.0 kg
[~2024-02-16 14:54] MED LIST: CARV3.122 PO; LOSA-415 PO; tamsulosin capsule PO
[2024-02-16] MEDS: acetaminophen 325mg tablet PO ONE (16:17)
[2024-02-16 16:21] LABS: BILIRUBIN,URINE NEGATIVE (Neg); CLARITY,URINE CLOUDY (Clear); COLOR,URINE YELLOW (Yellow); GLUCOSE, URINE NEGATIVE (Neg); KETONES,URINE NEGATIVE (Neg); LEUKOCYTE ESTERASE ,URINE MODERATE (Neg); OCCULT BLOOD,URINE MODERATE (Neg); PROTEIN,URINE TRACE mg/dl (Neg); UROBILINOGEN,URINE 0.2 E.U/dL (0.2-1.0)
[2024-02-16 16:28] LABS: BACTERIA,URINE 3+ /HPF (Neg); NITRITES, URINE NEGATIVE (Neg); SQUAMOUS EPITHELIAL CELL,UR NONE SEEN /LPF (FEW); UA COLLECTION TYPE FOLEY CATH; WBC,URINE TNTC /HPF (0-4)
[2024-02-16 16:29] LABS: WBC CLUMPS,URINE MANY /HPF (NEGATIVE)
[2024-02-16] MEDS ORDERED: LEVO-65 PO (16:57)
[2024-02-16 17:24] VITALS: BP 117/78; PULSE 89; RESP 16; TEMP 98.6; O2SAT 98
== END 2024-02-16 17:25 | disposition home or self-care (01) ==
LOC: ER 14:54
DX: R33.9 Retention of urine, unspecified (principal); Z79.899 Other long term (current) drug therapy
CPT/HCPCS: 51702; 81001; 87077; 87088; 87186; 99284; A4314; A4358